=== PATIENT | male | born 2000 ===

== ENCOUNTER 2022-10-16 03:12 | Outpatient (CLI) | payer MEDICAID, SELFPAY ==
[2022-10-18 11:48] LABS: Appearance Normal; Container Type 50 mL Conical; Grade 2.5 (>=2.5); Motile/Ejaculate 10.8 x10(6) (>=9.0); Motile/mL 3.6 x10(6) (>=6.0); Motility 18 % (>=40); Sperm/mL 20.1 x10(6) (>=15.0); Study Type Semen; Supravital Stain 30 % live (>=58)
== END 2022-10-16 03:13 | disposition home or self-care (01) ==
LOC: LBO 03:13
PROVIDERS: Visit Provider Urology
DX: I86.1 Scrotal varices (principal)
CPT/HCPCS: 89240; 89310

== ENCOUNTER 2024-12-17 15:12 | Outpatient (REF) | payer BC, SELFPAY ==
[2024-12-20 11:50] LABS: Chlamydia Result Negative (Negative); GC Result Negative (Negative)
== END 2024-12-17 15:13 | disposition home or self-care (01) ==
LOC: NCHCN 15:12
PROVIDERS: Visit Provider Nurse Practitioner Family
DX: B37.42 Candidal balanitis (principal)
CPT/HCPCS: 87491; 87591

== ENCOUNTER 2025-05-25 13:11 | Emergency (ER) | payer BC, SELFPAY ==
[2025-05-25 13:15] VITALS: BP 151/89; PULSE 97; RESP 20; TEMP 36.8; O2SAT 98
--- NOTE | 2025-05-25 13:45 | DI.RAD_ITS ---
Exam(s) XR FINGER RT INDEX EXAM: XR FINGER RT INDEX CLINICAL HISTORY: cut tip of index finger, bone exposed. TECHNIQUE: 2D digital imaging was performed of the right finger. Three views were obtained. PA/AP, oblique, and lateral views were obtained. COMPARISON: No exams were available for comparison FINDINGS: Portions of the distal finger are obscured due to overlying bandages. BONES: No acute fracture is present. No bony destructive lesion is seen. JOINTS: No dislocation present. SOFT TISSUE: Normal. IMPRESSION: No evidence of acute fracture or dislocation. DATA REPOSITORY: RADIATION DOSE DELIVERED:
[2025-05-25] MEDS: Amox. 875/Clav. 125, 2 TABS/BTL 1 TAB PO ×2 (14:18→16:14)
--- NOTE | 2025-05-25 16:08 | ED.GENADUL_ITS ---
Discharge Plan Disposition Patient Disposition: Home Condition: Stable Discharge Details Clinical Impression: Amputated finger Primary Care Provider: Unknown,Unknown ED Provider: Su Ernst Home Meds and New Rx's Prescriptions: New amoxicillin-pot clavulanate 875-125 mg tablet 1 tab PO BID Qty: 10 0RF Continued vitamin B complex [Vitamins B Complex] Tablet 1 tab PO DAILY C Complex 1,000 mg tablet extended release 1,000 mg PO DAILY Discharge Instructions Instructions: Amputation of the Finger or Fingertip (DC) Additional Instructions: Take the antibiotic as prescribed [facility] will likely call you on for surgery Friday. If you do not hear from the surgical group on and likely means your surgery will postponed until Friday or Friday of the following week. They will give you instructions on for Friday surgery, if they have capacity. I given you several tablets of morphine, this is addictive and can make you constipated, do not operate your vehicle for 8 hours after taking this medicine You will need to change the dressing daily. Tomorrow change the dressing wash with soap and water and apply the Xeroform over the top and [place]. Try to elevate is much as possible To shower Place a Ziploc bag over the wound and tape to keep dry Do not submerge your hand in water Yogurt daily while on the antibiotic Please return with persistent bleeding, worsening pain, fever, chills, or should any new concerns arise The number for the orthopedic surgical group at [facility] if you have any questions at [phone] You should have enough antibiotic to cover you through Friday and you may fill your antibiotic on Friday at [facility] Stand Alone Forms: Portal Information, Work Release Referrals: ORTHOPAEDICS,[facility] [place] [OTHER, Orthopaedic] HPI General Date/Time Provider Initiated Documentation: 05/25/25 13:42 . HPI Narrative: This 25-year-old male presents after accidentally cutting the tip of his right second finger while wrapping presents with scissors. Event occurred at 1 PM. He thinks his tetanus is up-to-date denies any additional injuries and is otherwise healthy. Related Data Home Medications ?Medication ?Instructions ?Recorded ?Confirmed amoxicillin 875 mg-potassium 1 tab PO BID #10 tabs clavulanate 125 mg tablet ascorbic acid (vitamin C) 1,000 mg 1,000 mg PO DAILY 1 07/26/24 05/25/25 tablet,extended release (C Complex) vitamin B complex (Vitamins B 1 tab PO DAILY 05/25/25 05/25/25 Complex tablet) Previous Rx's ?Medication ?Instructions ?Recorded amoxicillin 875 mg-potassium 1 tab PO BID #10 tabs clavulanate 125 mg tablet Allergies Allergy/AdvReac Type Severity Reaction Status Date / Time No Known Allergies Allergy Verified 05/25/25 13:18 General Stated Complaint: Laceration LELO: 4 Exam Narrative Exam Narrative: Amputation noted to the tip of his right second digit, bone visible distal phalanx sensation intact approximately no obvious fracture Course Vital Signs Vital signs: Vital Signs Temperature 36.8 C 05/25/25 13:15 Pulse 97 H 05/25/25 13:15 Respiratory Rate 20 05/25/25 13:15 Blood Pressure 151/89 H 05/25/25 13:15 Pulse Oximetry 98 05/25/25 13:15 Temperature 36.8 C 05/25/25 13:15 Pulse 97 H 05/25/25 13:15 Respiratory Rate 20 05/25/25 13:15 Blood Pressure 151/89 H 05/25/25 13:15 Blood Pressure Position Sitting 05/25/25 13:15 Pulse Oximetry 98 05/25/25 13:15 Oxygen Delivery Method Room Air 05/25/25 13:15 Oxygen Flow Rate 0 05/25/25 13:15 Medical Decision Making Results x-ray with soft tissue deformity, no obvious fracture per radiology interpretation my review Assessment and plan: Patient with amputation to the tip of his right second digit of his hand. Bone is visible and so therefore orthopedics was called at [facility]. We currently have no orthopedic coverage nor do we have hand coverage. I spoke with Dr. Cuenca, [facility] orthopedic group and they are planning to perform surgery on Friday patient was placed on Augmentin. And Xeroform dressing applied, there is some scant oozing but bleeding is otherwise controlled. Tetanus was updated in 2022. Wound was cleansed copiously dressing applied. Encouraged to elevate. Work note supplied small amount of morphine 4 tablets supplied, risk of addiction reviewed [facility] All Active Problems (Updated 05/25/25 @ 16:03 by ELMA Jc) Amputated finger (Acute) Medical History (Updated 05/25/25 @ 16:03 by ELMA Jc) Varicocele Social History Smoking risk assessment performed?: No
[2025-05-25] MEDS: MORPHine IR 15 MG TAB, 4 TABS/BTL PO (16:14)
[2025-05-25 16:15] VITALS: BP 124/71; PULSE 90; RESP 16; O2SAT 98
== END 2025-05-25 16:15 | disposition home or self-care (01) ==
PROVIDERS: Emergency Provider Physician Assistant
DX: S68.110A Complete traumatic metacarpophalangeal amputation of right index finger, initial encounter (principal); W26.8XXA Contact with other sharp object(s), not elsewhere classified, initial encounter
CPT/HCPCS: 99283 ×2; 73140